=== PATIENT | female | born 1955 | race Caucasian/White ===

== ENCOUNTER → 2016-07-29 | Outpatient (CLI) | payer OTHER | END | disposition home or self-care (01) | LOC: C.CPL 14:51 | PROVIDERS: ATTEND Orthopaedic Surgery | DX: Z01.810 Encounter for preprocedural cardiovascular examination (principal) ==

== ENCOUNTER 2019-09-16 12:12 | Inpatient (IN) ==
--- NOTE | 2019-08-31 10:46 | PAT Medication Instructions ---
Medication Instructions Date of Service August 31, 2019 Home Medications atorvastatin [Lipitor] 10 mg PO PM celecoxib [Celebrex] 200 mg PO BID escitalopram oxalate [Lexapro] 20 mg PO PM famotidine 40 mg PO HS omeprazole 20 mg PO QAM ASK your surgeon for instructions celecoxib [Celebrex] 200 mg PO BID Take morning of surgery With a small sip of water, OTHERWISE NOTHING TO EAT OR DRINK AFTER MIDNIGHT: omeprazole 20 mg PO QAM Take evening before surgery atorvastatin [Lipitor] 10 mg PO PM escitalopram oxalate [Lexapro] 20 mg PO PM famotidine 40 mg PO HS Other Notes If you have any questions please call us at [phone] or [phone] or [phone] or [phone]
--- NOTE | 2019-09-02 13:01 | Anesthesiology Consultation ---
Date of Service September 02, 2019 Assessment & Plan (1) Encounter for pre-operative examination: Per PAT assessment on 09/01: Travel screen- Lives in [place]. Only travel is to [facility] for work (wears mask at all times when at work/wears mask in public). No known COVID-19 positive contacts. No history of COVID-19 testing. No current COVID-19 related symptoms. Chart Review Chart Review: Acceptable Risk for Surgery (pending surgeon-ordered PCP clearance scheduled 09/05 (Dr. Oliver)) and Patient seen in Pre Admission Testing Teaching & Discussion Pre-Anesthesia Teaching/Discussion Notes: Instructed NPO after midnight before surgery,except medications with 15 cc of water. Medication instructions provided according to the PAT guidelines. History Surgery Operation Date: 09/16/19 07:00 Proposed Procedures p Right Total Knee Arthroplasty - Fernie Parmar MD Height/Weight Height: 5 ft 7 in Weight: 76.4 kg Allergies Allergy/AdvReac Type Severity Reaction Status Date / Time codeine AdvReac Severe Gastrointestinal Verified 09/02/19 13:11 Upset Medications Home Medications Medication Instructions Recorded Confirmed Last Taken atorvastatin [Lipitor] 10 mg PO PM 08/30/19 08/30/19 Unknown celecoxib [Celebrex] 200 mg PO BID 08/30/19 08/30/19 Unknown escitalopram oxalate [Lexapro] 20 mg PO PM 08/30/19 08/30/19 Unknown famotidine 40 mg PO HS 08/30/19 08/30/19 Unknown omeprazole 20 mg PO QAM 08/30/19 08/30/19 Unknown Past Medical History Medical History Depression GERD (gastroesophageal reflux disease) controlled Hyperlipidemia Osteoarthritis Exercise / Class Metabolic Activity II 4-5 Yardwork/Stairs/Walk up hill Past Family History Family History Mother Diabetes Past Surgical History Surgical History History of arthroscopy X2 RIGHT KNEE History of bilateral tubal ligation History of cholecystectomy History of colonoscopy History of endometrial ablation History of tonsillectomy History of tooth extraction Past Anesthesia History No Hx of Anesthesia Complications (expect PONV) and No Family Hx of Anesthesia Complications History of PONV No Hx of Motion Sickness and History of PONV (no issues with most recent surgeries when pre-treatment used) Social History Smoking Status: Never smoker Do You Dip or Chew Tobacco: No Hx Alcohol Use: No Hx Substance Use: No substance use type: does not use Review of Systems Reflux controlled. Patient denies chest pain, shortness of breath, dyspnea on exertion, fever, chills, cough, wheezing, palpitations. Physical Exam PHYSICAL Full neck and c-spine range of motion. Full TMJ range of motion. TMD 3 finger breaths Mallampati Score 3 Dentition: intact, + crowns "several all over" including front teeth Lungs: clear throughout to auscultation Cardiac: regular rate and rhythm, no murmurs noted Spine: normal Carotid arteries: negative bruit Extremities: no edema Testing Laboratory Results 09/02/19 13:41 09/02/19 13:41 PT 10.4 Seconds (9.0-12.0) 09/02/19 13:41 INR 1.0 (0.9-1.1) 09/02/19 13:41 APTT 29.2 Seconds (21.0-31.0) 09/02/19 13:41 Hemoglobin A1c 5.3 % (4.5-5.6) 09/02/19 13:41 Urine Color Yellow 09/02/19 03:30 Urine Appearance Clear (Clear) 09/02/19 03:30 Urine pH 5.0 (4.5-7.5) 09/02/19 03:30 Ur Specific [place] 1.009 (1.000-1.030) 09/02/19 03:30 Urine Protein Negative (Negative) 09/02/19 03:30 Urine Glucose (UA) Negative (Negative) 09/02/19 03:30 Urine Ketones Negative (Negative) 09/02/19 03:30 Urine Nitrite Negative (Negative) 09/02/19 03:30 Ur Leukocyte Esterase Negative (Negative) 09/02/19 03:30 Blood Type A Positive 09/02/19 13:41 Antibody Screen NEGATIVE 09/02/19 13:41 Electrocardiogram Date: 09/02/19 NSR at 61bpm. Cannot rule out anterior infarct. (No significant change compared to 07/29/16 per pelt inspector review) Chest X-Ray Date: 09/02/19 Findings: + NAD
--- NOTE | 2019-09-02 14:18 | XRay Report ---
XR chest Pre-admission PA/Lat HISTORY: Preop. COMPARISON: Chest 05/09/2011. FINDINGS: The lungs are clear. Cardiac silhouette is normal in size. No pleural effusions. No pneumot horax. IMPRESSION: No acute process. ACT 112: Negative or not required by law. Electronically signed by: Fadi Rocha M.D. 09/02/2019 2:16 PM
[2019-09-02 14:52] LABS: Basophils # (auto) 0.06 K/uL (0-0.2); Eosinophils # (auto) 0.15 K/uL (0-0.5); Eosinophils % (auto) 2.6 %; Hematocrit (blood only) 39.1 % (37-47); Hemoglobin 12.8 g/dL (12.0-16.0); Immature Granulocytes # (auto) 0.02 K/uL (0.00-0.02); Immature Granulocytes % (auto) 0.3 %; Lymphocytes # (auto) 2.07 K/uL (1.2-3.4); Lymphocytes % (auto) 35.8 %; Mean Corpuscular Hemoglobin 28.8 pg (25-34); Mean Corpuscular Hgb Conc 32.7 g/dL (32-36); Mean Corpuscular Volume 88.1 fL (80-100); Mean Platelet Volume 10.6 fL (7.4-10.4); Monocytes # (auto) 0.51 K/uL (0.11-0.59); Monocytes % (auto) 8.8 %; Neutrophils # (auto) 2.97 K/uL (1.4-6.5); Neutrophils % (auto) 51.5 %; Platelet Count 231 K/uL (130-400); RDW Coefficient of Variation 15.1 % (11.5-14.5); RDW Standard Deviation 49.1 fL (36.4-46.3); Red Blood Count 4.44 M/uL (4.2-5.4); White Blood Count 5.78 K/uL (4.8-10.8)
[2019-09-02 15:11] LABS: Estimated Average Glucose 105 mg/dl; Hemoglobin A1C 5.3 % (4.5-5.6)
[2019-09-02 15:13] LABS: Partial Thromboplastin Time 29.2 Seconds (21.0-31.0); Prothrombin Time 10.4 Seconds (9.0-12.0)
[2019-09-02 15:19] LABS: Albumin Level 3.5 gm/dl (3.4-5.0); BUN Creatinine Ratio 14.3 (10-20); Calcium 8.4 mg/dl (8.5-10.1); Creatinine Clr Calc Pharmacy 95.7 ml/min; Est GFR (African American) 110.3; Est GFR (Non-African American) 95.2; Potassium 3.7 mmol/L (3.5-5.1)
--- NOTE | 2019-09-02 16:57 | Electrocardiogram Report ---
Test Reason : Blood Pressure : / mmHG Vent. Rate : 061 BPM Atrial Rate : 061 BPM P-R Int : 172 ms QRS Dur : 088 ms QT Int : 430 ms P-R-T Axes : 070 000 010 degrees QTc Int : 432 ms Normal sinus rhythm Cannot rule out Anterior infarct When compared with ECG of 29-JUL-2016 14:59, No significant change was found Confirmed by Aaron Montiel ([id number]) on 09/02/2019 4:56:33 PM Referred By: Fernie Parmar Confirmed By:Aaron Montiel
[2019-09-02 17:16] LABS: Appearance Urine Clear (Clear); Bilirubin Urine Negative (Negative); Blood Urine Negative (Negative); Color Urine Yellow; Glucose Urine UA Negative (Negative); Ketones Urine Negative (Negative); Leukocyte Esterase Urine Negative (Negative); Nitrite Urine Negative (Negative); Protein Urine Negative (Negative); Specific Gravity Urine 1.009 (1.000-1.030); Urobilinogen Urine Negative (Negative)
--- NOTE | 2019-09-06 13:47 | History & Physical Report ---
Date of Service September 06, 2019 Assessment & Plan (1) Primary osteoarthritis of right knee: Treatment options discussed. She has failed conservative measures as above. Risks, benefits and alternatives to surgery including but not limited to infection, DVT, pain, stiffness, need for revision surgery, damage to blood vessels, damage to nerves, PE, , were discussed with the patient and they wish to proceed. Plan will be for right total knee arthroplasty. All questions answered. Will plan on aspirin 81mg BID x 1 mo post operatively and will plan on HH PT post discharge. Current COVID status is unknown. She will be tested preoperatively. History of Present Illness Chief Complaint: Right knee pain Primary Care Provider: Anni Oliver DO 64 year old female with PMHx significant for GERD presents with long standing history of right knee pain. Pain is affecting her ability to carry out daily and leisure activities. She has failed conservative measures including injections and anti-inflammatories. She has previously had a distal femur osteotomy with initially good relief of her pain several years ago. She would like to proceed with right knee replacement. Patient denies headaches, sweats, fevers, chills, double vision, blurred vision, cough, sore throat, dysphagia, chest pain, sob, wheezing, n/v/d/c, numbness, tingling, fatigue, urinary symptoms, mood disorders. ROS positive for right knee pain and stiffness. Allergies Allergy/AdvReac Type Severity Reaction Status Date / Time codeine AdvReac Severe Gastrointestinal Verified 09/02/19 13:11 Upset Home Medications Home Medications Medication Instructions Recorded Confirmed Type atorvastatin [Lipitor] 10 mg PO PM 08/30/19 08/30/19 History celecoxib [Celebrex] 200 mg PO BID 08/30/19 08/30/19 History escitalopram oxalate [Lexapro] 20 mg PO PM 08/30/19 08/30/19 History famotidine 40 mg PO HS 08/30/19 08/30/19 History omeprazole 20 mg PO QAM 08/30/19 08/30/19 History Past Med/Surg History Medical History Depression GERD (gastroesophageal reflux disease) controlled Hyperlipidemia Osteoarthritis Surgical History History of arthroscopy X2 RIGHT KNEE History of bilateral tubal ligation History of cholecystectomy History of colonoscopy History of endometrial ablation History of tonsillectomy History of tooth extraction Family History Mother Diabetes Social History Preferred Language: Thai Communication Ability: Effective Blade Operator Required: No Beliefs That Will Affect Care: None Current Living Situation: Spouse Other Information That Helps Us Care for You: No Feels Safe at Home: Yes Safety Concerns: Feels Safe At This Time Smoking Status: Never smoker Do You Dip or Chew Tobacco: No ; Second Hand Exposure: No ; Tobacco Cessation Education Requested by Patient: No Hx Alcohol Use: No Hx Substance Use: No Review of Systems All systems reviewed & are unremarkable except as noted in HPI & below Physical Exam Constitutional: well developed and well nourished; no acute distress Eyes: PERRL, conjunctivae normal, anicteric sclerae ENMT: external ear and nose normal, oropharynx normal Neck: trachea midline, no thyromegaly Respiratory: normal respiratory effort, lungs clear to auscultation Cardiovascular: RRR, no murmur, no edema Musculoskeletal: Right knee: Skin is normal. No lymphadenopathy is appreciated. Mild effusion, range of motion 0-135 flexion, negative anterior drawer, negative posterior drawer, negative Keren's, knee stable to varus and valgus stress at 0 to 30 of flexion. Tender to palpation lateral joint line, positive Melissa's. Varus deformity. Previous postoperative scars which are well-healed. Significant crepitus with range of motion. Skin: no rashes, warm and dry Neurologic: patellar DTR's 2+ bilat, sensation intact Psychiatric: A+Ox3, euthymic affect Results & Data Laboratory Results Lab Results 09/02/19 09/02/19 09/02/19 Range/Units 03:30 13:41 13:41 WBC 5.78 (4.8-10.8) K/uL RBC 4.44 (4.2-5.4) M/uL Hgb 12.8 (12.0-16.0) g/dL Hct 39.1 (37-47) % MCV 88.1 (80-100) fL MCH 28.8 (25-34) pg MCHC 32.7 (32-36) g/dL RDW Std Deviation 49.1 H (36.4-46.3) fL RDW Coeff of Terra 15.1 H (11.5-14.5) % Plt Count 231 (130-400) K/uL MPV 10.6 H (7.4-10.4) fL Immature Gran % (Auto) 0.3 % Neut % (Auto) 51.5 % Lymph % (Auto) 35.8 % [place] % (Auto) 8.8 % Eos % (Auto) 2.6 % Baso % (Auto) 1.0 % Immature Gran # (Auto) 0.02 (0.00-0.02) K/uL Neut # (Auto) 2.97 (1.4-6.5) K/uL Lymph # (Auto) 2.07 (1.2-3.4) K/uL [place] # (Auto) 0.51 (0.11-0.59) K/uL Eos # (Auto) 0.15 (0-0.5) K/uL Baso # (Auto) 0.06 (0-0.2) K/uL PT (9.0-12.0) Seconds INR (0.9-1.1) APTT (21.0-31.0) Seconds PTT Ratio Sodium (136-145) mmol/L Potassium (3.5-5.1) mmol/L Chloride (98-107) mmol/L Carbon Dioxide (21-32) mmol/L Anion Gap (3-11) BUN (7-18) mg/dl Creatinine (0.6-1.2) mg/dl Est Cr Clr Drug Dosing ml/min Est GFR ( Amer) Est GFR (Non-Af Amer) BUN/Creatinine Ratio (10-20) Glucose (70-99) mg/dl Estimat Average Glucose mg/dl Hemoglobin A1c (4.5-5.6) % Calcium (8.5-10.1) mg/dl Albumin (3.4-5.0) gm/dl Urine Color Yellow Urine Appearance Clear (Clear) Urine pH 5.0 (4.5-7.5) Ur Specific [place] 1.009 (1.000-1.030) Urine Protein Negative (Negative) Urine Glucose (UA) Negative (Negative) Urine Ketones Negative (Negative) Urine Blood Negative (Negative) Urine Nitrite Negative (Negative) Urine Bilirubin Negative (Negative) Urine Urobilinogen Negative (Negative) Ur Leukocyte Esterase Negative (Negative) Blood Type A Positive Antibody Screen NEGATIVE 09/02/19 09/02/19 09/02/19 Range/Units 13:41 13:41 13:41 WBC (4.8-10.8) K/uL RBC (4.2-5.4) M/uL Hgb (12.0-16.0) g/dL Hct (37-47) % MCV (80-100) fL MCH (25-34) pg MCHC (32-36) g/dL RDW Std Deviation (36.4-46.3) fL RDW Coeff of Terra (11.5-14.5) % Plt Count (130-400) K/uL MPV (7.4-10.4) fL Immature Gran % (Auto) % Neut % (Auto) % Lymph % (Auto) % [place] % (Auto) % Eos % (Auto) % Baso % (Auto) % Immature Gran # (Auto) (0.00-0.02) K/uL Neut # (Auto) (1.4-6.5) K/uL Lymph # (Auto) (1.2-3.4) K/uL [place] # (Auto) (0.11-0.59) K/uL Eos # (Auto) (0-0.5) K/uL Baso # (Auto) (0-0.2) K/uL PT 10.4 (9.0-12.0) Seconds INR 1.0 (0.9-1.1) APTT 29.2 (21.0-31.0) Seconds PTT Ratio 1.0 Sodium 135 L (136-145) mmol/L Potassium 3.7 (3.5-5.1) mmol/L Chloride 104 (98-107) mmol/L Carbon Dioxide 27 (21-32) mmol/L Anion Gap 4.0 (3-11) BUN 9 (7-18) mg/dl Creatinine 0.65 (0.6-1.2) mg/dl Est Cr Clr Drug Dosing 95.7 ml/min Est GFR ( Amer) 110.3 Est GFR (Non-Af Amer) 95.2 BUN/Creatinine Ratio 14.3 (10-20) Glucose 68 L (70-99) mg/dl Estimat Average Glucose 105 mg/dl Hemoglobin A1c 5.3 (4.5-5.6) % Calcium 8.4 L (8.5-10.1) mg/dl Albumin 3.5 (3.4-5.0) gm/dl Urine Color Urine Appearance (Clear) Urine pH (4.5-7.5) Ur Specific [place] (1.000-1.030) Urine Protein (Negative) Urine Glucose (UA) (Negative) Urine Ketones (Negative) Urine Blood (Negative) Urine Nitrite (Negative) Urine Bilirubin (Negative) Urine Urobilinogen (Negative) Ur Leukocyte Esterase (Negative) Blood Type Antibody Screen Diagnostic Findings Right knee radiographs: Significant osteoarthritis change in all three compartments with [id number] articulation and periarticular osteophyte formation and subchondral sclerosis.
[~2019-09-16 12:12] MED LIST: ACETAMINOPHEN 500 MG TAB PO SCH; BUPIVACAINE 0.5 % 5 MG/1 ML PF 10ML VIAL ONE; CEFAZOLIN 2000MG 2,000 MG/15 ML SYR IV SCH; CeleBREX 200 MG CAP PO SCH; EPINEPHrine INJ 1 MG/ML AMP ONE; GABAPENTIN 600 MG DOSE PO SCH; LIDOCAINE HCL 2% 2 ML VIAL/AMP(20MG/ML) INFIL ONE; LR 500ML BOLUS, THEN 15ML/HR IV SCH; METOCLOPRAMIDE HCL 10 MG TABLET PO SCH; PROPOFOL IV EMULSION 10 MG/ML 20 ML VIAL IV ONE; ROPIVACAINE 0.5% 5 MG/ML 30 ML VIAL ONE; TRANEXAMIC ACID 1,000 MG **IV Intra-op IV SCH; TRANEXAMIC ACID 1,000 MG **IV Pre-op IV SCH; dexAMETHasone 4 MG TAB PO SCH
[2019-09-16] MEDS ORDERED: LIDOCAINE HCL 2% 2 ML VIAL/AMP(20MG/ML) INFIL ONE (13:09)
[2019-09-16] MEDS ORDERED: MIDAZOLAM HCL 1 MG/ML 2ML VIAL ONE (13:09)
[2019-09-16] MEDS ORDERED: fentaNYL citrate 100 MCG/2 ML VIAL ONE (13:09)
[2019-09-16] MEDS ORDERED: PROPOFOL IV EMULSION 10 MG/ML 20 ML VIAL IV ONE (13:09)
--- NOTE | 2019-09-16 13:21 | History & Physical Bridge Note ---
Date of Service September 16, 2019 History & Physical Bridge Note I have examined the patient, reviewed the History & Physical and in the interval since the performance of the History & Physical I have noted the following changes of clinical significance: no changes noted
[2019-09-16] MEDS ORDERED: LABETALOL HCL IV 5 MG/ML 20ML IV PRN (13:47)
[2019-09-16] MEDS ORDERED: ePHEDrine sulfate 50 MG/ML AMP IV PRN (13:47)
[2019-09-16] MEDS ORDERED: fentaNYL citrate 100 MCG/2 ML VIAL IV PRN (13:47)
[2019-09-16] MEDS ORDERED: ONDANSETRON INJ 2 MG/ML 2 ML VIAL IV PRN ×2 (13:47→17:55)
[2019-09-16] MEDS ORDERED: MEPERIDINE HCL 25 MG/ML CARP/VIAL IV PRN (13:47)
[2019-09-16] MEDS ORDERED: PHENYLEPHRINE 100MCG/ML 5ML SYR IV PRN (13:47)
[2019-09-16] MEDS ORDERED: ATROPINE SULFATE 0.1 MG/ML 10ML SYR IV PRN (13:47)
[2019-09-16] MEDS ORDERED: BACITRACIN INJ 50,000 UNIT VIAL ONE (14:04)
[2019-09-16] MEDS ORDERED: ROPIVACAINE 0.5% HCL/PF 150 MG, BUPIVACAINE 0.5% MPF 30 ML, EPINEPHrine 30MG/30ML (OR U... INSTIL SCH (14:45)
--- NOTE | 2019-09-16 16:09 | Operative Report ---
Post Operative Report Pre & Post Diagnosis Operation Date: 09/16/19 14:20 Pre-Op Diagnosis: Primary osteoarthritis of right knee Post-Op Diagnosis: Primary osteoarthritis of right knee I identified the patient and participated in the time-out.: Yes Procedure Operation Date: 09/16/19 14:20 Actual Procedures p Right Total Knee Arthroplasty(Right) - Fenrie Parmar MD Surgeon Fernie Parmar MD Monogram Technician Ty Keyes PA-C Estimated Blood Loss 20 Findings Consistent with Post-Op Diagnosis Specimens Bone and tissue Drains None Anesthesia Type MAC Spinal Regional Complications none Disposition Accompanied Patient To Recovery: No Disposition: Recovery Room Indications The patient is a 64-year-old female longstanding arthritic change in the right knee. She previously undergone an opening wedge osteotomy utilizing an ex fix per Dr. Ramires a number of years ago. She done quite well after that surgery and had significant pain relief for a number of years. She has had progressive arthritic change throughout her knee. She is failed conservative measures including injection, anti-inflammatories, rehab. She wishes to proceed with a right total knee arthroplasty. Description of Procedure Risks benefits and alternatives of surgery including but not limited to infection, DVT, pain, stiffness, need for surgery, damage to blood vessels, damage to nerves or risks of anesthesia were discussed with the patient and they wished to proceed. The patient was identified and the laterality was confirmed and marked. They received a preoperative antibiotic as well as a spinal anesthetic and an abductor canal block. A well-padded tourniquet was applied and then the limb was prepped and draped in standard manner with ChloraPrep. The limb was exsanguinated and the tourniquet was inflated. I made an anterior incision. I medialized the incision to try to stay away from some of the previous incisions she had had from her prior osteotomy. There was 1 directly lateral and another anterolateral. I sharply incised the skin then utilized Bovie electrocautery to achieve hemostasis. I made a medial parapatellar arthrotomy and mobilized the patella laterally. I then excised the anterior horns of the medial and lateral meniscus as well as the infrapatellar fat pad. I elevated a portion of the MCL off of the tibia. I then pinned into place a patient-matched distal femoral cutting guide and made my distal femoral resection. I then pinned into place the 5 in 1 femoral cutting guide. I made my anterior, posterior and chamfer cuts. I then excised the cruciates and the remaining portions of the menisci. I then pinned into place a patient- matched tibial cutting guide and made my tibial resection. I then pinned into place the tibial plate a utilizing alignment lokesh to confirm rotation. I then cut for the post. Utilizing a lamina chamfering machine operator and I then removed posterior osteophytes off the femur. I then placed a trial femur into position and cut for the trochlear component. I then sequentially trialed to size the polyethylene until there was good soft tissue balancing and range of motion. I then prepared the patella with a freehand cut utilizing sagittal saw. I sized and drilled for the patella. There was good tracking to the patella no lateral release was needed. All the trial components were removed. The deep tissues were anesthetized with an ortho mix solution. Then with Simplex HV with gentamicin cement, I cemented my definitive components. Definitive components, Nuñez and Nephew Rahelney 2: Femur 5 Tibia 3 Poly 13 Patella 35 oval A betadine soak was performed. The arthrotomy was closed with interrupted #1 Vicryl suture subcutaneous tissue was closed with interrupted 2-0 Vicryl suture. The skin was closed with with alysia. An Acticoat and Justyn dressing were placed. Sterile dressings were applied. All needle and sponge counts were correct at the end of the procedure patient was transferred to the PACU in stable condition without apparent complication. The PA-C was necessary for assistance with procedure for assistance in pos itioning, prepping, draping, retraction and closure. I attest to the content of the Intraoperative Record and any orders documented therein. Any exceptions are noted below.
--- NOTE | 2019-09-16 16:58 | Anesthesiology Progress Note ---
Date of Service September 16, 2019 Anesthesia Post Procedure Vital Signs Vital Signs: Temp Pulse Pulse Resp BP BP Pulse Ox 09/16/19 16:44 36 C L 68 16 91/61 L 95 09/16/19 12:33 37 C 61 18 136/83 96 Transfer of Care Handoff Completed per policy Notes Mental Status: alert / awake / arousable Patient Amnestic to Procedure: Yes Nausea / Vomiting: adequately controlled Pain: adequately controlled Airway Patency, RR, SpO2: stable & adequate BP & HR: stable & adequate Hydration State: stable & adequate Neuraxial Anesthesia: was administered and sensory block is resolving Anesthetic Complications: no major complications apparent
--- NOTE | 2019-09-16 17:22 | XRay Report ---
XR knee RT 1 or 2V routine CLINICAL HISTORY: Surgical Post Op COMPARISON: None. DISCUSSION: Anatomic alignment post total right knee arthroplasty. Good contact between prosthetic an d underlying bone. Expected postoperative soft tissue change. Angulation of the distal femur possibly secondary to old trauma. IMPRESSION: Good position post total right knee arthroplasty. ACT 112: Negative or not required by law. The above report was generated using voice recognition software. It may contain grammatical, syntax or spelling errors. Electronically signed by: Macho Velásquez M.D. 09/16/2019 5:20 PM
[2019-09-16] MEDS ORDERED: NALOXONE HCL 0.4 MG/1 ML VIAL/CARP IV PRN (17:55)
[2019-09-16] MEDS ORDERED: MAGNESIUM HYDROXIDE SUSP 30 ML UDC PO PRN (17:55)
[2019-09-16] MEDS ORDERED: HYDROmorphone INJ 0.5 MG/0.5 ML SYR IV PRN (17:55)
[2019-09-16] MEDS ORDERED: OXYCODONE HCL IR 5 MG TAB (IMMEDIATE RELEASE) PO PRN (17:55)
[2019-09-16] MEDS ORDERED: bisacodyL 10 MG SUPP PR PRN (17:55)
[2019-09-16] MEDS: SODIUM CHLORIDE 0.9% 1000ML 1,000 ML IV SCH (19:40)
[2019-09-16] MEDS ORDERED: ATORVASTATIN 10 MG TAB PO SCH (21:00)
[2019-09-16] MEDS ORDERED: SENNA 8.6 MG TAB PO SCH (21:00)
[2019-09-16] MEDS ORDERED: ESCITALOPRAM OXALATE 20 MG TAB PO SCH (21:00)
[2019-09-16] MEDS: FERROUS GLUCONATE 324 MG TAB PO SCH (21:05)
[2019-09-16] MEDS: ASPIRIN 81 MG ECTAB PO SCH (22:02)
[2019-09-16] MEDS: DOCUSATE SODIUM 100 MG CAP PO SCH (22:03)
[2019-09-16] MEDS: ACETAMINOPHEN 500 MG TAB PO SCH (22:04)
[2019-09-16] MEDS: CeleBREX 200 MG CAP PO SCH (22:04)
[2019-09-16] MEDS: CEFAZOLIN 1000MG 1,000 MG/7.5 ML SYR IV SCH (22:09)
[2019-09-17] MEDS: ACETAMINOPHEN 500 MG TAB PO SCH (05:04)
[2019-09-17] MEDS: CEFAZOLIN 1000MG 1,000 MG/7.5 ML SYR IV SCH (05:04)
[2019-09-17] MEDS: SODIUM CHLORIDE 0.9% 1000ML 1,000 ML IV SCH (05:18)
[2019-09-17 07:24] LABS: Hematocrit (blood only) 36.2 % (37-47); Mean Corpuscular Hemoglobin 29.5 pg (25-34); Mean Corpuscular Hgb Conc 33.1 g/dL (32-36); Mean Corpuscular Volume 88.9 fL (80-100); Mean Platelet Volume 10.4 fL (7.4-10.4); Platelet Count 242 K/uL (130-400); RDW Coefficient of Variation 14.7 % (11.5-14.5); RDW Standard Deviation 48.1 fL (36.4-46.3); Red Blood Count 4.07 M/uL (4.2-5.4); White Blood Count 11.55 K/uL (4.8-10.8)
[2019-09-17] MEDS: FERROUS GLUCONATE 324 MG TAB PO SCH (07:44)
[2019-09-17] MEDS: ASPIRIN 81 MG ECTAB PO SCH (07:45)
[2019-09-17] MEDS: DOCUSATE SODIUM 100 MG CAP PO SCH (07:45)
[2019-09-17] MEDS: CeleBREX 200 MG CAP PO SCH (07:46)
[2019-09-17 07:47] LABS: BUN Creatinine Ratio 15.6 (10-20); Calcium 8.4 mg/dl (8.5-10.1); Creatinine Clr Calc Pharmacy 83.2 ml/min; Est GFR (African American) 100.6; Est GFR (Non-African American) 86.8; Potassium 3.8 mmol/L (3.5-5.1)
--- NOTE | 2019-09-17 08:04 | Orthopedic Progress Note ---
Date of Service September 17, 2019 Assessment & Plan (1) Primary osteoarthritis of right knee: POD#1 Right TKA -PT/OT -Pain management -DVT prophylaxis-ASA 81mg BID, SCDs, TEDs -AM labs-hemoglobin at 12 from 12.8 preop -D/C planning-home with HHPT likely later today after PT. Will plan on discha rging with 1 week of Cefradoxil as prophylaxis. Admission and Anticipated Discharge Date Admission Date: September 16, 2019 Subjective Patient sitting up in bed, comfortable. Pain well controlled. Denies chest pain, sob, dizziness, light headedness, n/v/d. Review of Systems Review of Systems: All systems reviewed & are unremarkable except as noted in HPI & below Physical Exam Physical Exam: Right knee dressing is c/d/i, toes mobile. Good dorsiflexion. No calf tenderness. Distally n/v status and sensation intact. Constitutional: well developed and well nourished; no acute distress Results & Data ([facility]) Vital Signs (Past 12 Hours) Vital Signs Temp Pulse Pulse Resp BP BP Pulse Ox 09/17/19 07:47 36.6 C 56 L 16 132/83 96 09/17/19 03:58 36.6 C 55 L 16 106/70 97 09/17/19 00:09 36.5 C 54 L 16 107/67 92 09/16/19 23:35 36.5 C 54 L 16 107/67 92 09/16/19 20:59 36.3 C L 72 16 104/67 93 09/16/19 20:15 58 L 14 116/75 93 Laboratory Results H & H 09/02/19 09/17/19 Range/Units 13:41 07:08 Hgb 12.8 12.0 (12.0-16.0) g/dL Hct 39.1 36.2 L (37-47) % Coagulation 09/02/19 Range/Units 13:41 INR 1.0 (0.9-1.1)
[2019-09-17] MEDS ORDERED: PANTOprazole 40 MG TAB PO SCH (09:00)
[2019-09-17] MEDS ORDERED: MULTIVITAMIN TAB PO SCH (09:00)
--- NOTE | 2019-09-19 10:54 | Discharge Summary ---
Date of Service September 19, 2019 Admission HPI Per Admitting Provider 64 year old female with PMHx significant for GERD presents with long standing history of right knee pain. Pain is affecting her ability to carry out daily and leisure activities. She has failed conservative measures including injections and anti-inflammatories. She has previously had a distal femur osteotomy with initially good relief of her pain several years ago. She would like to proceed with right knee replacement. Patient denies headaches, sweats, fevers, chills, double vision, blurred vision, cough, sore throat, dysphagia, chest pain, sob, wheezing, n/v/d/c, numbness, tingling, fatigue, urinary symptoms, mood disorders. ROS positive for right knee pain and stiffness. Admission Exam Per Admitting Provider Constitutional: well developed and well nourished; no acute distress Eyes: PERRL, conjunctivae normal, anicteric sclerae ENMT: external ear and nose normal, oropharynx normal Neck: trachea midline, no thyromegaly Respiratory: normal respiratory effort, lungs clear to auscultation Cardiovascular: RRR, no murmur, no edema Musculoskeletal: Right knee: Skin is normal. No lymphadenopathy is appreciated. Mild effusion, range of motion 0-135 flexion, negative anterior drawer, negative posterior drawer, negative Keren's, knee stable to varus and valgus stress at 0 to 30 of flexion. Tender to palpation lateral joint line, positive Melissa's. Varus deformity. Previous postoperative scars which are well-healed. Significant crepitus with range of motion. Skin: no rashes, warm and dry Neurologic: patellar DTR's 2+ bilat, sensation intact Psychiatric: A+Ox3, euthymic affect Principal Diagnosis Right knee DJD Discharge Exam ubjective Patient sitting up in bed, comfortable. Pain well controlled. Denies chest pain, sob, dizziness, light headedness, n/v/d. Review of Systems Review of Systems: All systems reviewed & are unremarkable except as noted in HPI & below Physical Exam Physical Exam: Right knee dressing is c/d/i, toes mobile. Good dorsiflexion. No calf tenderness. Distally n/v status and sensation intact. Constitutional: well developed and well nourished; no acute distress Results & Data ([facility]) Vital Signs (Past 12 Hours) Vital Signs Temp Pulse Pulse Resp BP BP Pulse Ox 09/17/19 07:47 36.6 C 56 L 16 132/83 96 09/17/19 03:58 36.6 C 55 L 16 106/70 97 09/17/19 00:09 36.5 C 54 L 16 107/67 92 09/16/19 23:35 36.5 C 54 L 16 107/67 92 09/16/19 20:59 36.3 C L 72 16 104/67 93 09/16/19 20:15 58 L 14 116/75 93 Laboratory Results H & H 09/02/19 09/17/19 Range/Units 13:41 07:08 Hgb 12.8 12.0 (12.0-16.0) g/dL Hct 39.1 36.2 L (37-47) % Discharge Data Allergies Allergy/AdvReac Type Severity Reaction Status Date / Time codeine AdvReac Severe Gastrointestinal Verified 09/16/19 12:25 Upset Consultations 09/16/19 17:55 Consult Case Management - Discharge Planning Routine Procedures Performed Operation Date: 09/16/19 14:20 Actual Procedures p Right Total Knee Arthroplasty(Right) - Fernie Parmar MD Ordered Studies 09/16/19 05:00 US - OR guided needle placemen Routine Hospital Course (1) Primary osteoarthritis of right knee: Patient was admitted on the above-noted date and had the above-noted surgery performed which she tolerated well.On her first postoperative day, she was sitting up in bed comfortable. Pain was controlled and she denies shortness of breath, chest pain, lightheadedness, nausea or vomiting. Dressings were clean, dry, and intact. Toes are mobile. She had good dorsiflexion. Denies calf tenderness. Neurovascular is intact. Vital signs were stable and she was afebrile. Hemoglobin was 12.0. She was started on PT and OT protocols and continued on DVT prophylaxis and pain management. She progressed well with her physical therapy and remained stable and was felt she be discharged home with home health services. Total Time Total Time Spent Total Time Spent (In Minutes): 5 Discharge Plan Discharge Items Patient Disposition: Home - Home Health Services Reason For Visit: RIGHT KNEE OSTEOARTHRITIS Discharge Diagnosis: Right knee osteoarthritis Activity: Per Instructions section Non-emergency contact: Surgeon Call non-emergency contact if: you have any medication questions, your pain is not controlled, your pain is worsening, your pain is concerning for you, you have a fever, your temperature is above 101, your wound has increased redness, your wound has increased drainage and your wound pain has increased Follow-up/Referrals: Anni lOiver, [Primary Care Provider] - Diet: Regular Addtl Attending Provider Instructions: ACTIVITY RECOMMENDATIONS: SELF CARE INSTRUCTIONS AFTER TOTAL KNEE REPLACEMENT A. You may need to continue a physical therapy program after discharge from the hospital. There are several options available to you. Your doctor will assist you in selecting the best one for you. 1. An out-patient facility 2 to 3 times a week for therapy or home therapy. 2. Continue working on all exercises taught to you in the hospital. Your goals should be to increase bending of your knee to 90 degrees and beyond and to fully straighten your knee. B. You may progress at your own pace from walking with a walker or crutches to a cane; then to no assistive devices. C. Make walking a part of your daily routine. Be up as much as comfortable with rest periods throughout the day. Rest with leg elevation is very important. Use the ice wrap frequently for the first 3-4 weeks. D. There are no restrictions on activities. You may ride in a car, shop, participate in communications station manager and all social activities. E. Wear the long elastic stockings (CAROLINA hose) 20 hours a day for 2 weeks after surgery. They can be removed several times a day for laundering and for a bath. F. You may shower, no tub baths until cleared by your doctor. SPECIAL CARE INSTRUCTIONS: VERY IMPORTANT TO READ AND REVIEW A. There are a few signs you need to watch for after you are home. Call [facility] [place] if you notice any of the followin. Increased severe knee pain. Some pain is expected especially when you exercise. 2. Increased swelling in your leg or knee; pain or swelling of the calf muscle in either lower leg. 3. Any fluid drainage from the incision. 4. Shortness of breath or chest pain. B. Please call [facility] at if you have any concerns or questions about your operation or recovery. The doctor or his nurse will return your call promptly. C. You must take antibiotics before dental work, bladder, bowel or other surgery. Your doctor will provide you with a permanent care to carry describing this precaution. IMPORTANT: * REMEMBER TO TAKE ASPIRIN, 81 MG, TWICE DAILY FOR 4 WEEKS UNLESS OTHERWISE DIRECTED. THIS IS YOUR BLOOD THINNER. * HIGH RISK PATIENTS MAY BE PRESCRIBED A STRONGER BLOOD THINNER. THIS WILL BE PROVIDED AT DISCHARGE. * CALL IF INCREASED PAIN, REDNESS, DRAINAGE OR FEVER GREATER THAT 101. * WEAR CAR[place]INA HOSE 20 HOURS PER DAY FOR 2 WEEKS. This is a large suction dressing covering your incision. This will help pull any excess drainage from the wound and allow your incision to heal properly. You may shower with this if you can keep the unit outside of the shower. If any bleeding or leakage is noted please call your doctor's office. This will remain on your incision for 7 days and then should be removed. This can be done yourself or by the home nursing staff if applicable. The entire unit is disposable once removed. Once removed, keep incision clean and dry. If redness or drainage is noted, please call your surgeon. FOLLOW UP VISIT: If appointment is not already scheduled: Please call [facility] [place] to make a follow-up appointment for 2 weeks after your surgery at . Stand-Alone Forms: My [facility] boarding pass, Opioid Pain Management, Smoking Cessation Medications and DC Order Prescriptions: New aspirin 81 mg Tablet,Delayed Release (Dr/Ec) 81 mg PO BID Qty: 60 RF: 0 acetaminophen 500 mg Tablet 1,000 mg PO Q8 Qty: 60 RF: 0 oxycodone 5 mg Tablet 5 - 10 mg PO .Q4H-6H MDD 6 PRN (Reason: pain) Qty: 30 RF: 0 cefadroxil 500 mg capsule 500 mg PO BID Qty: 14 RF: 0 Continued atorvastatin [Lipitor] 10 mg Tablet 10 mg PO PM RF: 0 famotidine 40 mg Tablet 40 mg PO HS RF: 0 escitalopram oxalate [Lexapro] 20 mg Tablet 20 mg PO PM RF: 0 omeprazole 20 mg Tablet,Delayed Release (Dr/Ec) 20 mg PO QAM RF: 0 celecoxib [Celebrex] 200 mg Capsule 200 mg PO BID RF: 0 Discharge Orders: Discharge Order (Routine); Ordered 09/17/19 Ordered By: Adam Baugh/Other Patient Handouts: DVT Post Op Prevention Admission Data Admit Date/Time: 09/16/19 16:53 Attending Provider: Fernie Parmar Admit Provider: Fernie Parmar Primary Care Provider: Anni Oliver Other Interventions: Discharge Summary Assessment (RN) Last Done: 09/17/19 09:45 DC Date/Time DO NOT enter until pt leaves facility: 09/17/19 12:34
== END 2019-09-17 12:34 | disposition home health service (06) | DRG 470 ==
LOC: ASU 12:12 → 3E 16:53